=== PATIENT | male | born 1940 | race Caucasian/White ===

== ENCOUNTER → 2017-05-31 | Outpatient (CLI) | payer MEDICARE, OTHER | END | disposition home or self-care (01) | LOC: GMAB 14:50 | PROVIDERS: ATTEND Family Medicine | DX: Z12.5 Encounter for screening for malignant neoplasm of prostate (principal); R53.82 Chronic fatigue, unspecified | CPT/HCPCS: 84443; G0103 ==

== ENCOUNTER 2018-09-20 19:26 | Emergency (ER) | payer MEDICARE, OTHER ==
--- NOTE | 2018-09-20 20:49 | RAD ---
EXAM DESCRIPTION: Abdomen Series CLINICAL HISTORY: abd/back pain COMPARISON: None FINDINGS: Frontal view of the chest and supine and upright images of the abdomen were submitted. There is elevation of the left hemidiaphragm and a probable moderate hiatal hernia. Small left pleural effusion is seen. There is atelectasis at the left lung base. There is also consolidation at the left lung base. Loops of gas-filled bowel are moderately dilated and contain fluid. No transition point is seen. Both small and large bowel loops are dilated. Prostatic left hip is present. IMPRESSION: Findings suggest ileus. Early or partial obstruction are not excluded but dilatation involves both loops of small and large bowel. There is consolidation at the left lung base and a probable moderate hiatal hernia versus fluid containing cystic lesion in the lower mid thorax of other etiology, which is less likely. Electronically signed by: Neo Dorsey 09/20/2018 8:45 PM [facility]
--- NOTE | 2018-09-20 22:33 | CT ---
PROCEDURE: Abdoment/Pelvis w/o Contrast (accession [id number]), Chest w/o Contrast (accession [id number]) CLINICAL HISTORY: 78 years Male abdominal pain with dilated loops of bowel on plain film x-ray study. There also appears to be consolidation at the left lung base on x-ray. COMPARISON: None. TECHNIQUE: Contiguous axial images obtained through the chest, abdomen and pelvis without IV contrast. Reformatted images obtained. This exam was performed according to our department optimization program which includes automated exposure control, adjustment of the mA and/or kv according to patient size and/or use of iterative reconstruction technique. FINDINGS: There is motion artifact on the images through the lower chest and upper abdomen. There is a moderate hiatal hernia. The mediastinum appears unremarkable. Coronary artery calcifications. Atherosclerotic changes in the thoracic aorta. Mild elevation of the left hemidiaphragm. Small left pleural effusion and probable minimal right pleural effusion. There is mild scarring/atelectasis in the lungs. No pneumothorax. There is a low-density lesion in the liver measuring 1.5 cm in diameter that likely represents a cyst. The spleen and pancreas appear unremarkable. No adrenal masses. There is a mass lesion in the superior lateral aspect of the left kidney concerning for a solid mass lesion/renal cell carcinoma. Sonography, three-phase CT or MRI with contrast could be obtained to better evaluate this lesion. There is also a small hyperdense lesion arising from the lateral margin of the left kidney consistent with a hemorrhagic cyst. There is a calculus in the left renal pelvis measuring 1.2 x 0.8 cm. There is questionable minimal prominence of the left renal collecting system which could be from partial obstruction or intermittent obstruction. There is an additional tiny nonobstructing left renal calculus. The gallbladder is visualized. Atherosclerotic calcifications. No aneurysmal dilatation of the aorta. There is likely severe stenosis in the bilateral common iliac arteries greater on the right. There is a left inguinal hernia which contains loops of bowel. There is also a right inguinal hernia which contains a loop of bowel. There is gaseous distention within portions of the colon which is most pronounced in the transverse colon. There is not definite bowel obstruction and the dilatation is likely from ileus. If there is continuing clinical concern for the possibility of bowel obstruction, CT following oral contrast could be helpful to better evaluate the loops of bowel. The appendix is not definitely identified. No free pelvic fluid. Old right rib fractures. Mild curvature in the lumbar spine convex left. Degenerative changes in the spine. Severe T8 compression fracture deformity which is age indeterminate. There is severe T10 compression fracture deformity which is likely old. There is mild T12 compression fracture deformity which appears acute. Correlation with point tenderness also recommended. Degenerative changes in the hips. Postsurgical changes in the left hip from previous fracture repair. The tip of the cannulated screw within the femoral head slightly extends into the joint space. IMPRESSION: Small left pleural effusion and probable minimal right pleural effusion. Mass lesion in the superior lateral aspect of the left kidney concerning for a solid mass/renal cell carcinoma. Sonography, three-phase CT or MRI with contrast could be obtained to better evaluate this lesion. Calculus in the left renal pelvis measuring approximately 1.2 cm in diameter. There appears to be minimal dilatation of the left renal collecting system which could be from partial or intermittent obstruction. 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 Bilateral inguinal hernias containing loops of bowel. There is gaseous distention in the transverse colon likely from ileus. If there is continuing concern for bowel obstruction, CT following oral contrast is recommended. Severe T8 compression fracture which is age indeterminate. Severe T10 compression fracture which is likely old. Mild T12 compression fracture which appears acute. Correlation with point tenderness is recommended. Electronically signed by: Prudencio Arenas MD 09/20/2018 10:30 PM [employer]
[2018-09-20] MEDS ORDERED: KETOROLAC TROMETHAMINE INJ 30 MG/ML VIAL IM ONE (22:48)
[2018-09-20] MEDS ORDERED: HYDROcodone 7.5MG/APAP 325MG 1 EA TAB PO ONE (22:48)
--- NOTE | 2018-09-20 23:15 | ED.PDOC ---
History of Present Illness - General Chief Complaint: Abdominal Pain Stated Complaint: RUQ and back pain Time Seen by Provider: 09/20/18 20:06 Source: patient, family Exam Limitations: clinical condition - History of Present Illness Initial Comments: the patient's 78-year-old male presented to emergency room with his family secondary to increasing pain with movement of his torso. The patient has significant dementia and has had for a while. He is unable to convey where exactly he is hurting when he moves. It is obvious that when he moves to sit up or lying back flat he has pain. He does not seem to have reproducible pain with palpation of any particular part of the abdomen. No definite palpable mass but his abdomen is tympanic. No vomiting today but his oral intake has been somewhat decreased. He has not been getting up and moving around. He normally has significant weakness and is really unable to get up and go to the bedside commode. His daughter apparently is taking care of him and works for home health area the patient is obviously in very poor health in general. He has a large skin cancer to the right angle of his nose. He has poorly healed repair of his eyelid on the left. The patient is thin. He is unable to communicate more than a word or so. He has very poor dentition. His daughter reports he does have a known renal mass on the left kidney. He does not want any attention for any of these problems. He does have a history of frequent falls. Daughter is not aware of him falling in the last week. He does have known osteoporosis and has had compression fractures in the past. Timing/Duration: unsure Severity: severe Improving Factors: immobilization Worsening Factors: movement Allergies/Adverse Reactions: Allergies NO KNOWN ALLERGY Allergy (Verified 09/20/18 20:50) Home Medications: Ambulatory Orders Cbpzbcopxysxu-Ootc-Hodssrdxai [Fioricet] 1 ea PO Q8H PRN #60 tab 09/20/18 Meloxicam [Mobic] 7.5 mg PO BID PRN #40 tab 09/20/18 Review of Systems - Review of Systems Review of Systems: 09/20/18 23:15 most reliable information is obtained from the daughter. Constitutional: States: no symptoms reported EENTM: States: no symptoms reported Respiratory: States: no symptoms reported Cardiology: States: no symptoms reported Gastrointestinal/Abdominal: States: other - e does have chronic swallowing difficulties from previous medical problems Genitourinary: States: no symptoms reported Musculoskeletal: States: back pain Skin: States: no symptoms reported Neurological: States: see HPI Endocrine: States: no symptoms reported All other Systems: No Change from Baseline Past Medical History (General) - Patient Medical History Hx Seizures: No Hx Stroke: No Hx Dementia: No Hx Asthma: No Hx of COPD: Yes Hx Cardiac Disorders: No Hx Congestive Heart Failure: No Hx Pacemaker: No Hx Hypertension: No Hx Thyroid Disease: No Hx Diabetes: No Hx Gastroesophageal Reflux: No Hx Renal Disease: No Hx Cancer: Yes - Left kidney, multiple skin Hx of HIV: No Hx Hepatitis C: No Hx MRSA: No - Vaccination History Hx Tetanus, Diphtheria Vaccination: No Hx Influenza Vaccination: No Hx Pneumococcal Vaccination: No - Social History Hx Tobacco Use: Yes Family Medical History - Family History Mother Family History: Unknown Physical Exam - Physical Exam General Appearance: Alert, Frail Eye Exam: bilateral normal - left eyelid repair has not healed properly Ears, Nose, Throat: hearing grossly normal, other - extremely poor dentition. Skin cancer to the right angle of the nose Neck: full range of motion, supple Respiratory: lungs clear, normal breath sounds, no respiratory distress, no accessory muscle use Cardiovascular/Chest: normal peripheral pulses, regular rate, rhythm, no edema Peripheral Pulses: radial,right: 2+, radial,left: 2+ Gastrointestinal/Abdominal: non tender, soft, other - mildly tympanic Rectal Exam: deferred Back Exam: other - the patient has very significant pain with trying to sit up in bed. He also has pain when lying back. He does have diffuse discomfort to palpation of the spine surrounding approximately T7-L2. No obvious new deformity. 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 The most likely source for the pain as a new T12 compression fracture likely from an unknown fall. The patient will be written for Fioricet by me. He does need to be gotten in with a primary care doctor where he can be written for a stronger pain medication as he will likely need it. Additionally he does need to take MiraLAX once or twice daily to prevent constipation since he is going to be a little more immobile than previous. The patient has numerous other pathologies noted on the CT scan that are subacute or old. Family has been given copies of his scans to discuss with his primary care doctor and determine what intervention if anything more for the indicated problems. So far the patient and family have elected for conservative care for most of his problems. The patient has been given doses of pain medications here tonight. If the patient continues to have increasing pain over the coming weeks then kyphoplasty may be an option though he is certainly not a good candidate for a lot of surgical procedures. - Results/Orders Results/Orders: scan of the chest shows small bilateral pleural effusions. He does have a hiatal hernia. CT scan of the abdomen and pelvis shows a left-sided kidney mass consistent with possibly renal cell carcinoma as well as a hemorrhagic rest. He also has a partially obstructing left renal stone at 1.2 x 0.8 cm. There is mild distention of the proximal collecting system indicating possible intermittent obstruction. 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 He has bilateral left and right inguinal hernias containing loops of bowel. He has a T8 compression fracture of questionable acuity. He has an old T10 compression fracture. He has what appears to be a new T12 compression fracture. Additionally in his left hip he has a screw that extends slightly far into the joint space from a repair. Laboratory Results - last 24 hr 09/20/18 09/20/18 09/20/18 21:16 21:16 21:16 WBC 6.7 RBC 3.92 L Hgb 11.5 L Hct 34.9 L MCV 89.0 MCH 29.3 MCHC 32.9 L RDW 19.7 H Plt Count 140 MPV 8.9 Absolute Neuts (auto) 5.80 Absolute Lymphs (auto) 0.40 L Absolute Monos (auto) 0.40 Absolute Eos (auto) 0.20 Absolute Basos (auto) 0.00 Neutrophils % 85.9 H Lymphocytes % 5.8 L Monocytes % 5.2 Eosinophils % 2.6 Basophils % 0.5 D-Dimer, Quantitative 2.21 H* Sodium 147 H Potassium 3.4 L Chloride 113 H Carbon Dioxide 26 Anion Gap 11.4 L BUN 21 H Creatinine 0.85 BUN/Creatinine Ratio 24.7 H Random Glucose 88 Serum Osmolality 294.8 Lactic Acid Calcium 8.7 Magnesium 2.0 Total Bilirubin 1.6 H AST 16 ALT 12 Alkaline Phosphatase 45 Creatine Kinase 34 L CK-MB (CK-2) 1.3 CK-MB (CK-2) % Not Reportable Troponin I 0.04 Serum Total Protein 7.2 Albumin 4.3 Globulin 2.9 Albumin/Globulin Ratio 1.5 Amylase 59 Lipase 37 Urine Color Urine Appearance Urine pH Ur Specific [place] Urine Protein Urine Glucose (UA) Urine Ketones Urine Blood Urine Nitrite Urine Bilirubin Urine Urobilinogen Ur Leukocyte Esterase Urine RBC Urine WBC Ur Epithelial Cells Urine Bacteria Urine Mucus 09/20/18 09/20/18 21:16 22:00 WBC RBC Hgb Hct MCV MCH MCHC RDW Plt Count MPV Absolute Neuts (auto) Absolute Lymphs (auto) Absolute Monos (auto) Absolute Eos (auto) Absolute Basos (auto) Neutrophils % Lymphocytes % Monocytes % Eosinophils % Basophils % D-Dimer, Quantitative Sodium Potassium Chloride Carbon Dioxide Anion Gap BUN Creatinine BUN/Creatinine Ratio Random Glucose Serum Osmolality Lactic Acid 1.1 Calcium Magnesium Total Bilirubin AST ALT Alkaline Phosphatase Creatine Kinase CK-MB (CK-2) CK-MB (CK-2) % Troponin I Serum Total Protein Albumin Globulin Albumin/Globulin Ratio Amylase Lipase Urine Color Yellow Urine Appearance Clear Urine pH 6.0 Ur Specific [place] 1.025 Urine Protein 100 H Urine Glucose (UA) Negative Urine Ketones 15 H Urine Blood Moderate H Urine Nitrite Negative Urine Bilirubin Small H Urine Urobilinogen 0.2 Ur Leukocyte Esterase Negative Urine RBC 3-5 H Urine WBC 3-5 H Ur Epithelial Cells 5-10 Urine Bacteria 1+ Urine Mucus Small Departure - Departure Clinical Impression: Uncontrolled pain Fracture, thoracic vertebra, compression Qualifiers: Encounter type: initial encounter Fracture type: closed Qualified Code(s): S22.000A - Wedge compression fracture of unspecified thoracic vertebra, initial encounter for closed fracture Disposition: Discharge to Home or Self Care Condition: Poor Departure Forms: ED Discharge - Pt. Copy, Patient Portal Self Enrollment Instructions: Vertebral Compression Fracture (DC) Diet: regular diet Activity: increase activity as tolerated Referrals: Renny Alcocer MD [Primary Care Provider] - 1-2 Weeks Prescriptions: Rwvrpaggwzlix-Dztj-Pdhajxdbxx [Fioricet] 1 ea PO Q8H PRN #60 tab PRN Reason: Pain Meloxicam [Mobic] 7.5 mg PO BID PRN #40 tab PRN Reason: Moderate Pain Home Medications: Ambulatory Orders Epmkggdxnhlhx-Elpo-Rgtefbebpl [Fioricet] 1 ea PO Q8H PRN #60 tab 09/20/18 Meloxicam [Mobic] 7.5 mg PO BID PRN #40 tab 09/20/18 Additional Instructions: the patient is an 78-year-old male presenting to the emergency room with his family secondary to pain. The most likely source for the pain as a new T12 compression fracture likely from an unknown fall. The patient will be written for Fioricet by me. He does need to be gotten in with a primary care doctor where he can be written for a stronger pain medication as he will likely need it. Additionally he does need to take MiraLAX once or twice daily to prevent constipation since he is going to be a little more immobile than previous. The patient has numerous other pathologies noted on the CT scan that are subacute or old. Family has been given copies of his scans to discuss with his primary care doctor and determine what intervention if anything more for the indicated problems. So far the patient and family have elected for conservative care for most of his problems. The patient has been given doses of pain medications here tonight. If the patient continues to have increasing pain over the coming weeks then kyphoplasty may be an option though he is certainly not a good candidate for a lot of surgical procedures.
[2018-09-20 23:42] VITALS: O2SAT 95
[2018-09-20 23:44] VITALS: BP 198/96; TEMP 97.9
== END 2018-09-20 23:44 | disposition home or self-care (01) ==
LOC: ER 19:26
DX: S22.080A Wedge compression fracture of T11-T12 vertebra, initial encounter for closed fracture (principal); S22.060A Wedge compression fracture of T7-T8 vertebra, initial encounter for closed fracture; S22.070A Wedge compression fracture of T9-T10 vertebra, initial encounter for closed fracture; R10.11 Right upper quadrant pain; N20.0 Calculus of kidney; K40.20 Bilateral inguinal hernia, without obstruction or gangrene, not specified as recurrent; C64.2 Malignant neoplasm of left kidney, except renal pelvis; C44.301 Unspecified malignant neoplasm of skin of nose; F03.90 Unspecified dementia, unspecified severity, without behavioral disturbance, psychotic disturbance, mood disturbance, and anxiety; J44.9 Chronic obstructive pulmonary disease, unspecified; Z91.81 History of falling; Z87.891 Personal history of nicotine dependence; X58.XXXA Exposure to other specified factors, initial encounter; Y92.9 Unspecified place or not applicable
CPT/HCPCS: 36415; 71250; 74019; 74176; 80053; 81001; 82150; 82550; 82553; 83605; 83690; 83735; 84484; 85025; 85379; J1885

== ENCOUNTER 2019-02-22 19:15 | Emergency (ER) | payer MEDICARE, OTHER ==
[2019-02-22 19:31] VITALS: TEMP 98.9
--- NOTE | 2019-02-22 20:17 | ED.PDOC ---
History of Present Illness - General Chief Complaint: Upper Extremity Injury Stated Complaint: Right Shoulder Pain Time Seen by Provider: 02/22/19 20:01 Source: family Exam Limitations: physical impairment - [facility] patient - History of Present Illness Initial Comments: Patient presents with his caregiver who says he fell out of his chair yesterday and was found on his right shoulder. Since then, the shoulder has been swelling. He has MR and poor conversational abilities but he indicates pain when the arm is moved or touched near the right shoulder. He has a history of osteoporosis and had a hip fracture last year. No other current complaints. Timing/Duration: 24 hours Severity: moderate Improving Factors: rest Worsening Factors: movement Associated Symptoms: denies symptoms Allergies/Adverse Reactions: Allergies NO KNOWN ALLERGY Allergy (Verified 02/22/19 19:31) Home Medications: Ambulatory Orders Tramadol HCl 50 mg PO Q6HRS PRN #20 tab 02/22/19 Review of Systems - Review of Systems Unable to Obtain Due To: other - MR Past Medical History (General) - Patient Medical History Hx Seizures: No Hx Stroke: No Hx Dementia: No Hx Asthma: No Hx of COPD: Yes Hx Cardiac Disorders: No Hx Congestive Heart Failure: No Hx Pacemaker: No Hx Hypertension: No Hx Thyroid Disease: No Hx Diabetes: No Hx Gastroesophageal Reflux: No Hx Renal Disease: No Hx Cancer: Yes - Left kidney, multiple skin Hx of HIV: No Hx Hepatitis C: No Hx MRSA: No Surgical History: other - Vaccination History Hx Tetanus, Diphtheria Vaccination: No Hx Influenza Vaccination: No Hx Pneumococcal Vaccination: No - Social History Hx Tobacco Use: Yes Family Medical History - Family History Mother Family History: Unknown Physical Exam - Physical Exam General Appearance: Alert Respiratory: lungs clear, normal breath sounds Cardiovascular/Chest: normal peripheral pulses, regular rate, rhythm Gastrointestinal/Abdominal: normal bowel sounds, non tender, soft Extremity: other - Right shoulder is swollen and TTP. Patient freely moves his right forearm, wrist and fingers. He indicates feeling in the entire right extremity when I palpate it. Progress - Progress Progress: 02/22/19 22:03 Radiographs of the right shoulder showed a comminuted mildly displaced fracture of the surgical neck of the humerus. Patient was given hydrocodone 10/325 po x one and placed into an arm immobilizer. Take home ER pack for hydrocodone 10/325 given and RX for Tramadol. Instructions to the care specialist to call Dr. Ovalle tomorrow to set up an appointment. 02/22/19 22:04 Care instructions given. E.R. warnings given. Questions were elicited and answered. Patient's caregiver voiced understanding and agreement with the plan. Departure - Departure Clinical Impression: Fracture of humerus neck Disposition: Discharge to Home or Self Care Condition: Fair Departure Forms: ED Discharge - Pt. Copy, Patient Portal Self Enrollment Instructions: Upper Arm Fracture, Shoulder Fracture (DC) Diet: resume usual diet Activity: other - Do not use the right arm until cleared by an orthopedic surgeon. Referrals: Renny Alcocer MD [Primary Care Provider] - 1-2 Weeks Prescriptions: Tramadol HCl 50 mg PO Q6HRS PRN #20 tab PRN Reason: Pain Home Medications: Ambulatory Orders Tramadol HCl 50 mg PO Q6HRS PRN #20 tab 02/22/19 Additional Instructions: Keep the arm in the immobilizer. Call Dr. Ovalle's office tomorrow to schedule an appointment. Use pain medications as directed if needed.
--- NOTE | 2019-02-22 20:26 | RAD ---
EXAM DESCRIPTION: Shoulder,Right 2 or More Views CLINICAL HISTORY: fall/trauma COMPARISON: None. FINDINGS: 2 views of the right shoulder. Acute comminuted mildly displaced surgical neck fracture of the proximal right humerus distending into the greater tubercle. No glenohumeral dislocation. The clavicle is intact. No acute abnormalities of visualized right ribs. Osteopenia. IMPRESSION: 1. Acute comminuted mildly displaced surgical neck fracture of the proximal right humerus. Electronically signed by: Orville Gonzalez 02/22/2019 8:24 PM CDT
--- NOTE | 2019-02-22 20:26 | RAD ---
EXAM DESCRIPTION: Chest XR,1 View CLINICAL HISTORY: fall COMPARISON: None FINDINGS: Cardiac silhouette is within normal limits. There is no focal parenchymal or pleural disease. Subdiaphragmatic lucency worrisome for a pneumoperitoneum. Correlation with a CT recommended. Aorta is tortuous. There is a displaced fracture of the right proximal humerus. Please refer to the shoulder dictation. IMPRESSION: Displaced acute right humeral fracture. Subdiaphragmatic lucency worrisome for a pneumoperitoneum. Correlation with a CT or decubitus image of the abdomen is recommended. Electronically signed by: Puneet Khan MD 02/22/2019 8:24 PM CDT
[2019-02-22] MEDS: HYDROcodone 10MG/APAP 325MG 1 EA TAB PO ONE (21:25)
--- NOTE | 2019-02-22 21:26 | RAD ---
EXAM DESCRIPTION: Abdomen Lat/Decubitus, x-ray two views CLINICAL HISTORY: possible free air in the peritoneum COMPARISON: None. FINDINGS: Decubitus images of the abdomen were submitted. There is no free air. There is atherosclerosis. Patient is status post left hip arthroplasty. IMPRESSION: No free air. Electronically signed by: Puneet Khan MD 02/22/2019 9:25 PM CDT
[2019-02-22] MEDS: HYDROCOD/APAP 10/325 (ER DISP) # 3 tablets PO ONE (22:19)
[2019-02-22 22:34] VITALS: BP 159/67; O2SAT 97
== END 2019-02-22 22:15 | disposition home or self-care (01) ==
LOC: ER 19:15
DX: S42.211A Unspecified displaced fracture of surgical neck of right humerus, initial encounter for closed fracture (principal); J44.9 Chronic obstructive pulmonary disease, unspecified; Z85.528 Personal history of other malignant neoplasm of kidney; Z85.828 Personal history of other malignant neoplasm of skin; Z87.891 Personal history of nicotine dependence; W07.XXXA Fall from chair, initial encounter; Y92.9 Unspecified place or not applicable

== ENCOUNTER → 2019-03-06 | Outpatient (CLI) | payer MEDICARE, MEDICAID ==
--- NOTE | 2019-03-06 15:00 | RAD ---
EXAM DESCRIPTION: Shoulder,Right 2 or More Views CLINICAL HISTORY: PAIN IN RIGHT SHOULDER COMPARISON: 02/22/2019. TECHNIQUE: Two views of the right shoulder. FINDINGS/IMPRESSION: Redemonstration of mildly displaced right humeral neck fracture with medial displacement of the distal fracture fragment (approximately one shaft width) and medial apex angulation with progressive overlying bridging callus formation. The osseous alignment is stable when compared to prior examination. Electronically signed by: Contreras Hassan DO 03/06/2019 2:58 PM CDT
== END ==
LOC: RAD 11:04
PROVIDERS: ATTEND Orthopaedic Surgery
DX: S42.291A Other displaced fracture of upper end of right humerus, initial encounter for closed fracture (principal)

== ENCOUNTER 2020-03-24 14:25 | Emergency (ER) | payer MEDICAID, MEDICARE ==
--- NOTE | 2020-03-24 15:10 | RAD ---
EXAM: XR Abdomen, 2 Views and XR Chest, 1 View CLINICAL HISTORY: The patient is 79 years old and is Male; poor intake TECHNIQUE: Three views total including of the chest, frontal view of the abdomen/pelvis and upright or decubitus view of the abdomen. COMPARISON: Acute abdominal series XR September 20, 2018. FINDINGS: Lungs: No pulmonary vascular congestion or consolidation. Pleural space: Unremarkable. No pneumothorax. Heart: The cardiac silhouette is enlarged versus artifact of AP technique. Mediastinum: See below. Intraperitoneal space: No free air. Gastrointestinal tract: Small hiatal hernia. Diffuse gaseous distention of the colon. Bones/joints: Old distracted fracture deformity, proximal right humerus. This was documented on an March 06, 2019 right shoulder x-ray. Previous ORIF proximal left femur. Degenerative changes in the bilateral hips, left greater than right. Diffuse bone demineralization. Old T12 compression fracture. Vasculature: Moderate atherosclerotic calcification. IMPRESSION: 1. Small hiatal hernia. 2. Diffuse gaseous distention of the colon. 3. Additional non-acute findings as above. Electronically signed by: Nataly Lemons MD 03/24/2020 3:09 PM CDT
--- NOTE | 2020-03-24 15:10 | RAD ---
EXAMINATION: Hand,Left 2 Views INDICATION: Pain. COMPARISON: None TECHNIQUE: 2 views hand FINDINGS: No fracture or dislocation. Soft tissues intact. Moderate degenerative changes noted throughout the interphalangeal joint spaces. Vascular calcifications are present. IMPRESSION: Moderate degenerative changes of the hand. Electronically signed by: Suma Vázquez MD 03/24/2020 3:09 PM CDT
--- NOTE | 2020-03-24 15:12 | RAD ---
EXAMINATION: X-ray pelvis INDICATION: Hip pain. COMPARISON: X-ray abdomen from September 20, 2018 TECHNIQUE: Frontal radiograph pelvis. FINDINGS: Stable appearing intramedullary marleen within the left femur as well as a screw affixing the femoral head and neck. There are severe degenerative changes of the left hip and moderate severe degenerative changes of the right hip. There are also degenerative changes throughout the lower lumbar spine. Calcifications in the pelvis, most compatible with phleboliths. IMPRESSION: Degenerative changes of both hips, worse on the left. No acute fracture or dislocation. Electronically signed by: Suma Vázquez MD 03/24/2020 3:11 PM CDT
--- NOTE | 2020-03-24 15:13 | RAD ---
EXAM: XR Left Shoulder, 1 View CLINICAL HISTORY: pain TECHNIQUE: One view of the left shoulder. COMPARISON: No relevant prior studies available. FINDINGS: Bones/joints: The bones are demineralized. There is loss of the supra humeral space compatible chronic rotator cuff thinning and/or tear. No acute fracture. No dislocation. Soft tissues: No abnormality noted. Vasculature: There is atherosclerotic calcification in the proximal upper extremity. IMPRESSION: Chronic changes as above. No acute disease. Electronically signed by: Yaneli Peng MD 03/24/2020 3:12 PM CDT
--- NOTE | 2020-03-24 15:59 | CT ---
EXAM DESCRIPTION: CT head without contrast. CLINICAL HISTORY: Altered mental status, known renal cancer and melanoma . COMPARISON: None Available. TECHNIQUE: Contiguous axial sections are obtained as per protocol. Sagittal and coronal reformations are submitted Automatic exposure control (AEC), mA and/or kV adjustment by patient size, and/or iterative reconstructive technique was used, per departmental dose optimization program, during the performance of the CT examination. FINDINGS: Empty sella is noted. Generalized cerebral atrophy is noted with prominence of the sulci and sylvian fissures, greater on the right . Normal plascencia-white matter differentiation is noted. No evidence of intra or extra-axial hemorrhage, hematoma, mass, mass effect or midline shift is noted. The posterior fossa structures appear normal. The bony calvarium appears intact. The soft tissues of the scalp appear unremarkable. Normal appearance of the orbits are noted. The paranasal sinuses and mastoids appear normal. IMPRESSION: Generalized cerebral atrophy. Unremarkable non contrast enhanced CT examination of brain. Electronically signed by: Shona Manzo MD 03/24/2020 3:58 PM CDT
--- NOTE | 2020-03-24 16:08 | CT ---
EXAM: CT Abdomen and Pelvis Without Intravenous Contrast CLINICAL HISTORY: The patient is 79 years old and is Male; ams, known renal cancer and melanoma, poor po TECHNIQUE: Axial computed tomography images of the abdomen and pelvis without intravenous contrast. Sagittal and coronal reformatted images were created and reviewed. This CT exam was performed using one or more of the following dose reduction techniques: automated exposure control, adjustment of the mA and/or kV according to patient size, and/or use of iterative reconstruction technique. COMPARISON: CT abdomen pelvis without contrast September 20, 2018. FINDINGS: Artifacts: Motion artifact limits the evaluation. Lung bases: Unremarkable. No mass. No consolidation. Mediastinum: Moderately sized hiatal hernia. ABDOMEN: Liver: 1.4 cm right hepatic simple cyst and no follow-up imaging required. Gallbladder and bile ducts: Gallbladder is contracted or absent. No ductal dilation. Pancreas: Unremarkable. No ductal dilation. Spleen: Unremarkable. No splenomegaly. Adrenals: Unremarkable. No mass. Kidneys and ureters: Left renal mass containing calcifications, approximately 4.4 cm in greatest dimension. Left nephrolithiasis. No hydronephrosis or ureter stone visualized. 10 mm left renal hyperdense cyst. No follow-up recommended. Right kidney is unremarkable. Stomach and bowel: Moderate gaseous distention of the right colon and transverse colon. No small bowel dilatation or obstruction. No definite bowel wall thickening. PELVIS: Appendix: The appendix is not visualized. No pericecal inflammation to suggest acute appendicitis. Bladder: Unremarkable. No stones. Reproductive: Enlarged prostate gland. ABDOMEN and PELVIS: Intraperitoneal space: Unremarkable. No free air. No significant fluid collection. Bones/joints: Previous ORIF proximal left femur. Loosening of the left femoral neck screw again noted through the femoral head and abutting the acetabulum. Fracture fragmentation of the left femoral head articular surface, new. Degenerative changes in the bilateral hips, more severe on the left. Degenerative changes in the bilateral SI joints. T8, T10, T12 and L2 and L3 compression fractures, old/chronic in appearance. Mild central canal stenosis at T12 and L2, L3. L2 and L3 are new compared with the prior exam. No dislocation. Soft tissues: Unremarkable. Vasculature: Tortuous abdominal aorta. Moderate aortoiliac atherosclerotic calcification. No aneurysm. Lymph nodes: No pathologically enlarged lymph nodes. IMPRESSION: 1. Motion artifact limits the evaluation. 2. Left renal mass again noted containing calcifications, approximately 4.4 cm in greatest dimension. 3. Left nephrolithiasis. 4. Moderate gaseous distention of the right colon and transverse colon. 5. Enlarged prostate gland. 6. Previous ORIF proximal left femur. Loosening of the left femoral neck screw again noted with the screw protruding through the femoral head and abutting the acetabulum. No fracture/fragmentation of the left femoral head articular surface. 7. Multiple vertebral compression fractures. L2 and L3 compression fractures are new compared with the prior study. 8. Moderately sized hiatal hernia. 9. Additional non-emergent findings as above. Electronically signed by: Nataly Lemons MD 03/24/2020 4:07 PM CDT
--- NOTE | 2020-03-24 16:58 | ED.PDOC ---
History of Present Illness - General Chief Complaint: General Stated Complaint: weakness / poor intake Time Seen by Provider: 03/24/20 14:29 Source: EMS notes reviewed, family Exam Limitations: clinical condition - History of Present Illness Initial Comments: The patient is a 79-year-old male brought in by EMS secondary to family reporting that the patient appeared to be more altered than normal and in some discomfort. Source of discomfort is uncertain. The patient is not really able to communicate effectively verbally. Family is concerned he may have a little bit of a left facial droop. 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 He also apparently has a renal tumor that was diagnosed a couple of years ago and treatment was deferred. Family reports that the patient has had significant wasting over the past year. They have been trying to get as much liquids and solids down them as they can but he continues to lose weight. Over the last week he has become significantly less ambulatory and is essentially bedbound. The patient does have extensive arthritic changes. He has had multiple compression fractures in the past. He has very poor dentition. His mucous membranes are dry. The patient is significantly cachectic. He does have significant limitations to movement of his left shoulder. The patient does withdraw to pain in all 4 extremities. Gag reflex is present. He will open his eyes spontaneously. The patient will mumble spontaneously but no really clear words are formed. He does have a diaper in place and there is some posterior erythema. Timing/Duration: 1 week, constant, getting worse Severity: severe Improving Factors: immobilization Worsening Factors: movement Allergies/Adverse Reactions: Allergies NO KNOWN ALLERGY Allergy (Verified 03/24/20 15:14) Home Medications: Ambulatory Orders Tramadol HCl 50 mg PO Q6HRS PRN #20 tab 02/22/19 Review of Systems - Review of Systems Review of Systems: 03/24/20 16:58 Review systems is given by family and so is significantly limited. Constitutional: States: malaise, weakness - Generalized EENTM: States: other - Poor dentition Respiratory: States: no symptoms reported Cardiology: States: no symptoms reported Gastrointestinal/Abdominal: States: see HPI - No appetite Genitourinary: States: other - Chronically incontinent Musculoskeletal: States: other - Chronic wasting and progressive weakness. Severe DJD causing chronic pain. Skin: States: see HPI Endocrine: States: see HPI, unexplained weight gain All other Systems: No Change from Baseline Past Medical History (General) - Patient Medical History Hx Seizures: No Hx Stroke: No Hx Dementia: No Hx Asthma: No Hx of COPD: Yes Hx Cardiac Disorders: No Hx Congestive Heart Failure: No Hx Pacemaker: No Hx Hypertension: No Hx Thyroid Disease: No Hx Diabetes: No Hx Gastroesophageal Reflux: No Hx Renal Disease: No Hx Cancer: Yes - Left kidney, multiple skin Hx of HIV: No Hx Hepatitis C: No Hx MRSA: No - Vaccination History Hx Tetanus, Diphtheria Vaccination: No Hx Influenza Vaccination: No Hx Pneumococcal Vaccination: No - Social History Hx Tobacco Use: Yes - Activities of Daily Living Hospice Agency (if applicable):: None - Female History Patient is a Female of Child Bearing Age (10 -59 yrs old): No Family Medical History - Family History Mother Family History: Unknown Physical Exam - Physical Exam General Appearance: Emaciated, Frail, Lethargic, Other - The patient is arousable. Eye Exam: bilateral other - Extraocular movements are intact. Eyes are sunken. Ears, Nose, Throat: abnormal TM (R) - Chronic cerumen impaction, other - Extremely poor dentition. Neck: non-tender Respiratory: lungs clear, no respiratory distress, no accessory muscle use Cardiovascular/Chest: normal peripheral pulses, regular rate, rhythm, no edema Peripheral Pulses: radial,right: 2+, radial,left: 2+ Gastrointestinal/Abdominal: non tender, soft Rectal Exam: deferred Back Exam: other - Erythema to bony prominences Extremity: no pedal edema, normal capillary refill, other - Chronic limitation to range of motion Neurologic: disoriented x 3, other - See history of present illness. Skin Exam: pallor Comments: Vital Signs - 24 hr 03/24/20 03/24/20 03/24/20 14:30 15:26 15:45 Temperature 96.9 F L Pulse Rate [ 92 H 75 92 H brachial] Respiratory 20 16 20 Rate Blood Pressure 130/82 101/52 [Left Arm] O2 Sat by Pulse 96 98 Oximetry Progress - Progress Progress: 03/24/20 17:04 The patient is an 79-year-old male presenting with severely increased pain and some significantly increased delirium. This appears to be most likely due to marked dehydration and hypernatremia and hyperchloremia. This is most likely due to his advanced dementia and reportedly poor oral intake over the past several months. No doubt melanoma and his renal cancer have contributed to his deterioration. His caregivers have made a very good ryan effort to keep him well-hydrated and well fed, however he has passed the point of that being adequate. Surgical intervention to allow for meeting of his nutritional needs is not recommended given his chronic mental state and chronic degenerative state in general. Attempted IV correction of the above problems would most likely not get the patient back to any adequate functional status and he would likely simply deteriorate once it was discontinued. Hospice is being recommended. 03/24/20 19:15 Hospice has been consulted. The patient will be allowed to go home with hospice care. Anticipated lifespan is less than a week. - Results/Orders Results/Orders: EKG shows what is most likely a normal sinus rhythm at 78 bpm. Normal axis. Normal R wave progression. Difficult to assess QT interval. I do not see definitive ST segment or T wave changes indicative of acute ischemia. Acute abdominal series is negative for acute changes but multiple chronic problems. Left hand x-ray shows DJD but no acute pathology. X-ray of the pelvis show severe DJD of the hips and the lumbar spine. X-ray left shoulder shows chronic osteoarthritic changes. CT scan of the abdomen pelvis shows a 4.4 cm left renal mass. There is also the left femur screw protruding into the acetabular space out the head of the femur with small intra-articular fragment of bone. There is gas distention of the colon. There are newer L2 and L3 compression fractures not seen on previous exams. See report above for details. Head CT shows no acute pathology. Multiple chronic senescent changes. Laboratory Tests 03/24/20 03/24/20 03/24/20 16:00 16:00 16:00 WBC 4.3 L RBC 3.15 L Hgb 9.1 L Hct 28.0 L MCV 88.9 MCH 28.9 MCHC 32.5 L RDW 18.4 H Plt Count 107 L MPV 10.2 Absolute Neuts (auto) 3.20 Absolute Lymphs (auto) 0.70 L Absolute Monos (auto) 0.30 Absolute Eos (auto) 0.10 Absolute Basos (auto) 0.00 Neutrophils % 74.2 Lymphocytes % 16.7 L Monocytes % 6.3 Eosinophils % 1.8 Basophils % 1.0 Sodium 160 H* Potassium 4.2 Chloride 134 H* Carbon Dioxide 19 L Anion Gap 11.2 L BUN 46 H Creatinine 1.57 H BUN/Creatinine Ratio 29.3 H Random Glucose 99 Serum Osmolality 330.4 H* Lactic Acid 1.6 Calcium 8.4 Magnesium 2.5 Total Bilirubin 0.8 AST 24 ALT 20 Alkaline Phosphatase 46 Creatine Kinase 132 CK-MB (CK-2) 2.9 CK-MB (CK-2) % Not Reportable Troponin I 0.08 H* B-Natriuretic Peptide 119.0 H Serum Total Protein 6.9 Albumin 3.6 Globulin 3.3 Albumin/Globulin Ratio 1.1 Amylase 60 Lipase 54 H Departure - Departure Clinical Impression: Hypernatremia, Hyperchloremia, Advanced dementia, Dehydration, severe Altered mental state Qualifiers: Altered mental status type: somnolence Qualified Code(s): R40.0 - Somnolence Acute renal failure Qualifiers: Acute renal failure type: unspecified Qualified Code(s): N17.9 - Acute kidney failure, unspecified Renal cancer Qualifiers: Laterality: unspecified laterality Qualified Code(s): C64.9 - Malignant neoplasm of unspecified kidney, except renal pelvis Disposition: Discharge Hospice In-Home Srv Condition: Serious Departure Forms: ED Discharge - Pt. Copy, Patient Portal Self Enrollment Diet: regular diet Activity: increase activity as tolerated Referrals: Renny Alcocer MD [Primary Care Provider] - 1-2 Weeks Home Medications: Ambulatory Orders Tramadol HCl 50 mg PO Q6HRS PRN #20 tab 02/22/19 Additional Instructions: Patient is an 79-year-old male presenting with delirium secondary to electrolyte abnormalities from severe dehydration related to his dementia. The patient is going home with hospice care. Anticipated lifespan is less than a week.
[2020-03-24 19:28] VITALS: BP 112/90; TEMP 97.2; O2SAT 94
== END 2020-03-24 19:29 | disposition hospice, home (50) ==
LOC: ER 14:25
DX: N17.9 Acute kidney failure, unspecified (principal); E86.0 Dehydration; R40.0 Somnolence; F03.90 Unspecified dementia, unspecified severity, without behavioral disturbance, psychotic disturbance, mood disturbance, and anxiety; E87.0 Hyperosmolality and hypernatremia; E87.8 Other disorders of electrolyte and fluid balance, not elsewhere classified; C64.9 Malignant neoplasm of unspecified kidney, except renal pelvis; C43.31 Malignant melanoma of nose; R32 Unspecified urinary incontinence; J44.9 Chronic obstructive pulmonary disease, unspecified; M16.0 Bilateral primary osteoarthritis of hip; M51.36 Other intervertebral disc degeneration, lumbar region; Z74.01 Bed confinement status